=== PATIENT | female | born 1965 | race Hispanic/Latino ===

== ENCOUNTER 2018-07-24 15:00 | Inpatient (IN) | payer BC ==
[2018-07-24 17:20] VITALS: BMI 27.5
--- NOTE | 2018-07-24 18:32 | CP.PCM.HP ---
<Rodriguez Vega - Last Filed: 07/24/18 18:55> History of Present Illness - History of Present Illness History of Present Illness: 52 yo F admitted to TCU for rehabilitation s/p L ankle ORIF. Pt was walking down steps when she fell and fractured her ankle. Denies: CP/SOB/N/V/T/numbness PMD: none Famhx: none Soc: denies smoking, alcohol or illicit drug; lives alone Surg: R rotator cuff; L elbow; hysterectomy Rx: none NKDA Present on Admission - Present on Admission Any Indicators Present on Admission: No History of Uncontrolled Diabetes: No Review of Systems - Constitutional Constitutional: As Per HPI - Respiratory Respiratory: absent: Cough, Dyspnea - Gastrointestinal Gastrointestinal: absent: Abdominal Pain - Genitourinary Genitourinary: absent: Dysuria, Urinary Frequency - Musculoskeletal Musculoskeletal: As Per HPI Past Patient History - Infectious Disease Hx of Infectious Diseases: None - Past Social History Smoking Status: Never Smoked - CARDIAC Hx Cardiac Disorders: No - PULMONARY Hx Respiratory Disorders: No - NEUROLOGICAL Hx Neurological Disorder: No - HEENT Hx HEENT Problems: Yes (eyeglasses) - RENAL Hx Chronic Kidney Disease: No - ENDOCRINE/METABOLIC Hx Endocrine Disorders: No - HEMATOLOGICAL/ONCOLOGICAL Hx Blood Disorders: No - INTEGUMENTARY Hx Dermatological Problems: No - MUSCULOSKELETAL/RHEUMATOLOGICAL Hx Musculoskeletal Disorders: Yes Hx Falls: Yes - GASTROINTESTINAL Hx Gastrointestinal Disorders: No - GENITOURINARY/GYNECOLOGICAL Hx Genitourinary Disorders: No - PSYCHIATRIC Hx Substance Use: No - SURGICAL HISTORY Hx Surgeries: Yes Hx Hysterectomy: Yes - ANESTHESIA Hx Anesthesia Reactions: No Hx Malignant Hyperthermia: No Has any member of the family had a problem w/ anesthesia?: No Meds Allergies/Adverse Reactions: Allergies Allergy/AdvReac Type Severity Reaction Status Date / Time No Known Allergies Allergy Verified 07/24/18 17:22 Physical Exam - Constitutional Appears: Well, No Acute Distress - Eye Exam Eye Exam: EOMI - ENT Exam ENT Exam: Mucous Membranes Moist - Respiratory Exam Respiratory Exam: Clear to Auscultation Bilateral, NORMAL BREATHING PATTERN. absent: Wheezes - Cardiovascular Exam Cardiovascular Exam: +S1, +S2 - GI/Abdominal Exam GI & Abdominal Exam: Normal Bowel Sounds, Soft. absent: Tenderness - Extremities Exam Extremities exam: Negative for: calf tenderness Additional comments: L lower extremity wrapped below knee: sensation of digits intact, cap refill <2 sec. Good range of motion - Back Exam Back exam: absent: CVA tenderness (L), CVA tenderness (R) - Neurological Exam Neurological exam: Alert, CN II-XII Intact, Oriented x3 - Psychiatric Exam Psychiatric exam: Normal Affect, Normal Mood Results - Vital Signs Recent Vital Signs: Last Vital Signs Temp 98.4 F 07/24/18 17:50 Pulse 76 07/24/18 17:50 Resp 18 07/24/18 17:50 BP 156/92 H 07/24/18 17:50 Pulse Ox 96 07/24/18 17:50 Assessment & Plan - Assessment and Plan (Free Text) Assessment: 52 yo F admitted to TCU for rehabilitation s/p L ankle ORIF. Plan: L ankle ORIF POD 4: Ortho: Dr. Walker Pena continue pain management c/w PT/OT to help with gait: pt has approx 64 steps to climb Pending XR per ortho to check for proximal fibular fracture. f/u am labs DVT prophylaxis Lovenox Case and plan d/w Dr. Tam Vega MD PGY-2 <Michael Turcios D - Last Filed: 07/25/18 09:49> Results - Vital Signs Recent Vital Signs: Last Vital Signs Temp 98 F 07/24/18 20:43 Pulse 76 07/24/18 20:43 Resp 18 07/24/18 20:43 BP 129/77 07/24/18 20:43 Pulse Ox 97 07/24/18 20:43 - Labs Result Diagrams: 07/25/18 07:00 07/25/18 07:00 Labs: Laboratory Results - last 24 hr 07/25/18 07/25/18 07:00 07:00 WBC 7.2 RBC 3.29 L Hgb 11.8 L Hct 35.0 MCV 106.4 H MCH 35.9 H MCHC 33.8 RDW 13.5 Plt Count 286 Sodium 137 Potassium 4.6 Chloride 99 Carbon Dioxide 31 H Anion Gap 12 BUN 16 Creatinine 0.5 L Est GFR ( Amer) > 60 Est GFR (Non-Af Amer) > 60 Random Glucose 104 Calcium 9.4 Total Bilirubin 0.6 AST 37 H D ALT 36 Alkaline Phosphatase 77 Total Protein 7.0 Albumin 4.1 Globulin 2.9 Albumin/Globulin Ratio 1.4 Attending/Attestation - Attestation I have personally seen and examined this patient.: Yes I have fully participated in the care of the patient.: Yes I have reviewed all pertinent clinical information: Yes Notes (Text): 07/25/18 09:49 Patient seen and examined with resident. Case discussed and agreed with assessment and plan of management.
[2018-07-24] MEDS ORDERED: Oxycodone/Acetaminophen 5/325 mg Tab PO PRN (20:31)
[2018-07-24] MEDS: Oxycodone/Acetaminophen 5/325 mg Tab PO PRN (22:16)
[2018-07-25 07:07] LABS: HEMOGLOBIN 11.8 g/dL (12.0-16.0); MEAN CELL VOLUME 106.4 fl (81.0-99.0); MEAN CORPUSCULAR HEMOGLOBIN 35.9 pg (27.0-31.0); MEAN CORPUSCULAR HGB CONC 33.8 g/dL (33.0-37.0); RBC 3.29 Mil/uL (3.80-5.20); RED CELL DISTRIBUTION WIDTH 13.5 % (11.5-14.5); WHITE BLOOD COUNT 7.2 K/uL (4.8-10.8)
[2018-07-25 07:24] LABS: ALB/GLOB RATIO 1.4 (1.0-2.1); ALBUMIN 4.1 g/dL (3.5-5.0); ALT/SGPT 36 U/L (9-52); AST/SGOT 37 U/L (14-36); BLOOD UREA NITROGEN 16 mg/dl (7-17); CALCIUM 9.4 mg/dL (8.4-10.2); GFR NON-AFRICAN AMERICAN > 60
[2018-07-25] MEDS: Enoxaparin 40 mg Syringe SC SCH (08:59)
[2018-07-25] MEDS: Oxycodone/Acetaminophen 5/325 mg Tab PO PRN ×3 (09:40→21:15)
--- NOTE | 2018-07-25 11:46 | CP.PCM.PN ---
Subjective - Date & Time of Evaluation Date of Evaluation: 07/25/18 Time of Evaluation: 11:43 - Subjective Subjective: Patient states her pain in controlled. She is concerned about stairs at home. Patient states she has a leg crutch at home, but that Dr. Pearson told her not to use it. Advised patient that while inpatient we must follow doctor's order s/recommendations. Denies CP/SOB/dizziness. Objective - Vital Signs/Intake and Output Vital Signs (last 24 hours): Temp Pulse Resp BP Pulse Ox 98 F 76 18 129/77 97 07/24/18 20:43 07/24/18 20:43 07/24/18 20:43 07/24/18 20:43 07/24/18 20:43 - Medications Medications: Current Medications Acetaminophen (Tylenol 325mg Tab) 650 mg PO Q6 PRN PRN Reason: Pain, Mild (1-3) Enoxaparin Sodium (Lovenox) 40 mg SC DAILY DAYANARA; Protocol Last Admin: 07/25/18 08:59 Dose: 40 mg Oxycodone/Acetaminophen (Percocet 5/325 Mg Tab) 2 tab PO Q4H PRN PRN Reason: Pain, moderate (4-7) Stop: 07/27/18 20:36 Last Admin: 07/25/18 09:40 Dose: 2 tab - Labs Labs: 07/25/18 07:00 07/25/18 07:00 - Extremities Exam Additional comments: LLE: cast intact, +ROM toes, sensation intact, no swelling to toes Assessment and Plan (1) Ankle fracture, bimalleolar, closed Assessment & Plan: POD#5 s/p ORIF medial malleolus/syndesmosis s/p SLC yesterday NWB patient with ecchymosis and tenderness to proximal fibula, tib fib xrays ordered to r/o prox fib fx PT/OT lovenox orthopedically stable d/w Dr. Pearson, agrees with above Status: Acute (2) Syndesmotic disruption of left ankle Status: Acute
--- NOTE | 2018-07-25 16:29 | RAD ---
Date of service: 07/25/2018 PROCEDURE: Radiographs of the left tibia and fibula. HISTORY: leg pain, r/o prox fib fracture COMPARISON: None available. TECHNIQUE: Frontal and lateral views obtained. Three views obtained. FINDINGS: BONES: Examination is made through casting material obscuring bony detail. Two screws transfix a medial malleolar fracture. The lateral distal fibular metaphyseal level plate is in place syndesmotic repair is inferred. Assessment of the posterior malleolus obscured. Proximal fibular diaphyseal fracture oblique with 1 to 2 mm posterior displacement of the proximal fracture fragment on lateral view. JOINT SPACES: Unremarkable. OTHER FINDINGS: None. IMPRESSION: Fixation of multiple fractures as above.
--- NOTE | 2018-07-25 18:15 | CP.PCM.CON ---
History of Present Illness - History of Present Illness History of Present Illness: Dr Steiner PMR consultation on Annette Villela, born 1965 who has been admitted to [facility] following a mechanical fall with severe ankle fracture and multiple ligament injuries as well. NWB with cast. S.P ORIF as well. Pain is fairly well controlled. Some minimal transient numbness. Review of Systems - Constitutional Constitutional: absent: Chills - EENT Eyes: absent: Blurred Vision Ears: absent: Ear Discharge, Ear Pain Nose/Mouth/Throat: absent: Nasal Congestion, Nasal Discharge - Cardiovascular Cardiovascular: absent: Chest Pain - Respiratory Respiratory: absent: Dyspnea - Gastrointestinal Gastrointestinal: absent: Belching, Constipation - Musculoskeletal Musculoskeletal: absent: Back Pain - Integumentary Integumentary: absent: Bleeding Lesions - Neurological Neurological: absent: Abnormal Movements, Radicular Pain - Psychiatric Psychiatric: absent: Anxiety Past Patient History - Infectious Disease Hx of Infectious Diseases: None - Past Social History Smoking Status: Never Smoked Home Situation {Lives}: Alone (many stairs. working. Independent ADLs and ambulation [employer]) - CARDIAC Hx Cardiac Disorders: No - PULMONARY Hx Respiratory Disorders: No - NEUROLOGICAL Hx Neurological Disorder: No - HEENT Hx HEENT Problems: Yes (eyeglasses) - RENAL Hx Chronic Kidney Disease: No - ENDOCRINE/METABOLIC Hx Endocrine Disorders: No - HEMATOLOGICAL/ONCOLOGICAL Hx Blood Disorders: No - INTEGUMENTARY Hx Dermatological Problems: No - MUSCULOSKELETAL/RHEUMATOLOGICAL Hx Musculoskeletal Disorders: Yes Hx Falls: Yes - GASTROINTESTINAL Hx Gastrointestinal Disorders: No - GENITOURINARY/GYNECOLOGICAL Hx Genitourinary Disorders: No - PSYCHIATRIC Hx Substance Use: No - SURGICAL HISTORY Hx Surgeries: Yes Hx Hysterectomy: Yes - ANESTHESIA Hx Anesthesia Reactions: No Hx Malignant Hyperthermia: No Has any member of the family had a problem w/ anesthesia?: No Meds Allergies/Adverse Reactions: Allergies Allergy/AdvReac Type Severity Reaction Status Date / Time No Known Allergies Allergy Verified 07/24/18 17:22 - Medications Medications: Current Medications Acetaminophen (Tylenol 325mg Tab) 650 mg PO Q6 PRN PRN Reason: Pain, Mild (1-3) Enoxaparin Sodium (Lovenox) 40 mg SC DAILY DAYANARA; Protocol Last Admin: 07/25/18 08:59 Dose: 40 mg Oxycodone/Acetaminophen (Percocet 5/325 Mg Tab) 2 tab PO Q4H PRN PRN Reason: Pain, moderate (4-7) Stop: 07/27/18 20:36 Last Admin: 07/25/18 16:56 Dose: 2 tab Tizanidine HCl (Zanaflex) 4 mg PO HS PRN PRN Reason: Sleep Physical Exam - Constitutional Appears: Non-toxic, No Acute Distress - Head Exam Head Exam: ATRAUMATIC, NORMAL INSPECTION, NORMOCEPHALIC - Eye Exam Eye Exam: EOMI - ENT Exam ENT Exam: Mucous Membranes Moist - Respiratory Exam Respiratory Exam: NORMAL BREATHING PATTERN - Cardiovascular Exam Cardiovascular Exam: REGULAR RHYTHM - GI/Abdominal Exam GI & Abdominal Exam: absent: Distended - Extremities Exam Extremities exam: Negative for: normal inspection (has left leg cast in place. can wiggle toes without problem. no swelling or erythema) - Neurological Exam Neurological exam: Alert, CN II-XII Intact, Oriented x3 - Psychiatric Exam Psychiatric exam: Normal Affect Results - Vital Signs Recent Vital Signs: Last Vital Signs Temp 98 F 07/24/18 20:43 Pulse 90 07/25/18 10:45 Resp 18 07/24/18 20:43 BP 129/77 07/24/18 20:43 Pulse Ox 99 07/25/18 10:45 - Labs Result Diagrams: 07/25/18 07:00 07/25/18 07:00 Labs: Laboratory Results - last 24 hr 07/25/18 07/25/18 07:00 07:00 WBC 7.2 RBC 3.29 L Hgb 11.8 L Hct 35.0 MCV 106.4 H MCH 35.9 H MCHC 33.8 RDW 13.5 Plt Count 286 Sodium 137 Potassium 4.6 Chloride 99 Carbon Dioxide 31 H Anion Gap 12 BUN 16 Creatinine 0.5 L Est GFR ( Amer) > 60 Est GFR (Non-Af Amer) > 60 Random Glucose 104 Calcium 9.4 Total Bilirubin 0.6 AST 37 H D ALT 36 Alkaline Phosphatase 77 Total Protein 7.0 Albumin 4.1 Globulin 2.9 Albumin/Globulin Ratio 1.4 Assessment & Plan - Assessment and Plan (Free Text) Assessment: PT/OT to continue to help increase functional independence Pain: controlled, but having some problem with sleep at night occasionally. I do not want to add a Benzo so will start on Zanaflex prn Vascular: no evidence of DVT GI: No evidence of constipation or diarrhea Patient continues to be an excellent TCU rehabilitation candidate and will have continued focused PT, OT and recreational therapy to help facilitate a safe and appropriate d/c plan
[2018-07-26] MEDS: Oxycodone/Acetaminophen 5/325 mg Tab PO PRN ×4 (07:02→21:48)
--- NOTE | 2018-07-26 07:16 | CP.PCM.PN ---
Subjective - Date & Time of Evaluation Date of Evaluation: 07/26/18 Time of Evaluation: 07:13 - Subjective Subjective: Patient states pain is controlled. Still working on stairs. Denies CP/SOB/dizziness/palp Objective - Vital Signs/Intake and Output Vital Signs (last 24 hours): Temp Pulse Resp BP Pulse Ox 98.1 F 78 20 122/88 98 07/25/18 21:00 07/25/18 21:00 07/25/18 21:00 07/25/18 21:00 07/25/18 21:00 - Medications Medications: Current Medications Acetaminophen (Tylenol 325mg Tab) 650 mg PO Q6 PRN PRN Reason: Pain, Mild (1-3) Enoxaparin Sodium (Lovenox) 40 mg SC DAILY DAYANARA; Protocol Last Admin: 07/25/18 08:59 Dose: 40 mg Oxycodone/Acetaminophen (Percocet 5/325 Mg Tab) 2 tab PO Q4H PRN PRN Reason: Pain, moderate (4-7) Stop: 07/27/18 20:36 Last Admin: 07/26/18 07:02 Dose: 2 tab Tizanidine HCl (Zanaflex) 4 mg PO HS PRN PRN Reason: Sleep - Labs Labs: 07/25/18 07:00 07/25/18 07:00 - Extremities Exam Additional comments: +ROM toes flex/ext less swelling toes warm, normal cap refill leg elevated Assessment and Plan (1) Ankle fracture, bimalleolar, closed Assessment & Plan: SLC in place NWB stairs training orthopedically stable keep cast dry and intact f/u approx 1 week upon discharge d/w Dr. Fabian, agrees with above Status: Acute (2) Syndesmotic disruption of left ankle Status: Acute (3) Fracture of proximal end of fibula Assessment & Plan: non operative monitor healing does not change mgmt Dr. Fabian aware Status: Acute Radiology Interpretation - Radiology Interpretation #3 Interpretation: Patient Name / ID : ORLANDO LAWRENCE V / [id number] Exam Date : 07/25/2018 14:34:36 ( Approved ) Study Comment : Sex / Age : F / 52Y Creator : Yelena Toribio Dictator : Yelena Toribio Rapid Outsole Stitcher : Shop Foreman : Yelena Toribio Approver2 : Report Date : 07/25/2018 16:23:55 My Comment : Date of service: 07/25/2018 PROCEDURE: Radiographs of the left tibia and fibula. HISTORY: leg pain, r/o prox fib fracture COMPARISON: None available. TECHNIQUE: Frontal and lateral views obtained. Three views obtained. FINDINGS: BONES: Examination is made through casting material obscuring bony detail. Two screws transfix a medial malleolar fracture. The lateral distal fibular metaphyseal level plate is in place syndesmotic repair is inferred. Assessment of the posterior malleolus obscured. Proximal fibular diaphyseal fracture oblique with 1 to 2 mm posterior displacement of the proximal fracture fragment on lateral view. JOINT SPACES: Unremarkable. OTHER FINDINGS: None. IMPRESSION: Fixation of multiple fractures as above.
[2018-07-26] MEDS: Enoxaparin 40 mg Syringe SC SCH (09:08)
--- NOTE | 2018-07-26 12:16 | CP.PCM.PN ---
Subjective - Date & Time of Evaluation Date of Evaluation: 07/26/18 Time of Evaluation: 12:11 - Subjective Subjective: Patient doing well with PT. Pain is controlled with current regimen. She feels like she is ready to go home. Crutches bedside. No complaints. No headaches, chest pain, dizziness, shortness of breath. Objective - Vital Signs/Intake and Output Vital Signs (last 24 hours): Temp Pulse Resp BP Pulse Ox 98.4 F 74 20 114/61 98 07/26/18 07:45 07/26/18 07:45 07/26/18 07:45 07/26/18 07:45 07/26/18 07:45 - Medications Medications: Current Medications Acetaminophen (Tylenol 325mg Tab) 650 mg PO Q6 PRN PRN Reason: Pain, Mild (1-3) Enoxaparin Sodium (Lovenox) 40 mg SC DAILY DAYANARA; Protocol Last Admin: 07/26/18 09:08 Dose: 40 mg Oxycodone/Acetaminophen (Percocet 5/325 Mg Tab) 2 tab PO Q4H PRN PRN Reason: Pain, moderate (4-7) Stop: 07/27/18 20:36 Last Admin: 07/26/18 12:04 Dose: 2 tab Tizanidine HCl (Zanaflex) 4 mg PO HS PRN PRN Reason: Sleep - Labs Labs: 07/25/18 07:00 07/25/18 07:00 - Constitutional Appears: Well - Head Exam Head Exam: ATRAUMATIC, NORMAL INSPECTION, NORMOCEPHALIC - Eye Exam Eye Exam: EOMI, Normal appearance, PERRL - Respiratory Exam Respiratory Exam: Clear to Ausculation Bilateral, NORMAL BREATHING PATTERN - Cardiovascular Exam Cardiovascular Exam: REGULAR RHYTHM, +S1, +S2. absent: Murmur - GI/Abdominal Exam GI & Abdominal Exam: Soft, Normal Bowel Sounds. absent: Tenderness - Extremities Exam Additional comments: left lower leg cast in place - Neurological Exam Neurological Exam: Alert, Awake - Psychiatric Exam Psychiatric exam: Normal Affect, Normal Mood Assessment and Plan - Assessment and Plan (Free Text) Assessment: 52 year old female admitted to TCU for rehabilitation s/p L ankle ORIF. Plan: L ankle ORIF POD 6: Ortho: Dr. Walker Pena Pain is well controlled. c/w PT/OT to help with gait: pt has approx 64 steps to climb Labs reviewed. DVT prophylaxis Ruthie Worley PGY3
[2018-07-26 19:19] VITALS: O2SAT 96
[2018-07-27] MEDS: Enoxaparin 40 mg Syringe SC SCH (08:37)
[2018-07-27 08:43] VITALS: BP 157/81; PULSE 88; RESP 19; TEMP 98.2
[2018-07-27] MEDS: Oxycodone/Acetaminophen 5/325 mg Tab PO PRN ×2 (08:46→12:00)
--- NOTE | 2018-07-27 09:14 | CP.PCM.PN ---
Subjective - Date & Time of Evaluation Date of Evaluation: 07/27/18 Time of Evaluation: 09:12 - Subjective Subjective: Patient states pain is controlled. No new complaints. Objective - Vital Signs/Intake and Output Vital Signs (last 24 hours): Temp Pulse Resp BP Pulse Ox 98.2 F 88 19 157/81 H 96 07/27/18 08:41 07/27/18 08:41 07/27/18 08:41 07/27/18 08:41 07/26/18 19:18 - Medications Medications: Current Medications Acetaminophen (Tylenol 325mg Tab) 650 mg PO Q6 PRN PRN Reason: Pain, Mild (1-3) Enoxaparin Sodium (Lovenox) 40 mg SC DAILY DAYANARA; Protocol Last Admin: 07/27/18 08:37 Dose: 40 mg Oxycodone/Acetaminophen (Percocet 5/325 Mg Tab) 2 tab PO Q4H PRN PRN Reason: Pain, moderate (4-7) Stop: 07/27/18 20:36 Last Admin: 07/27/18 08:46 Dose: 2 tab Tizanidine HCl (Zanaflex) 4 mg PO HS PRN PRN Reason: Sleep - Labs Labs: 07/25/18 07:00 07/25/18 07:00 - Extremities Exam Additional comments: LLE: +ROM toes, sensation intact, cast intact Assessment and Plan (1) Ankle fracture, bimalleolar, closed Assessment & Plan: SLC in place NWB continue lovenox stairs training orthopedically stable keep cast dry and intact f/u approx 1 week upon discharge d/w Dr. Fabian, agrees with above Status: Acute (2) Syndesmotic disruption of left ankle Status: Acute (3) Fracture of proximal end of fibula Status: Acute
--- NOTE | 2018-07-27 11:14 | CP.PCM.DIS ---
<Salina Worley - Last Filed: 07/27/18 13:26> Provider - Provider Date of Admission: 07/24/18 17:30 Attending physician: Michael Turcios MD Consults: 07/25/18 09:22 Orthopedic Consult Routine Comment: Consulting Provider: Anish Blanchard Consulting Physician: Anish Blanchard Reason for Consult: s/p surgery 07/25/18 09:25 Physiatry Consult Routine Comment: Consulting Provider: Jaret Steiner Consulting Physician: Jaret Steiner Reason for Consult: orif to left ankle Time Spent in preparation of Discharge (in minutes): 35 Diagnosis - Discharge Diagnosis (1) Fracture of proximal end of fibula Status: Acute (2) Ankle fracture, bimalleolar, closed Status: Acute (3) Syndesmotic disruption of left ankle Status: Acute Hospital Course - Lab Results Lab Results: Most Recent Lab Values WBC 7.2 K/uL (4.8-10.8) 07/25/18 07:00 RBC 3.29 Mil/uL (3.80-5.20) L 07/25/18 07:00 Hgb 11.8 g/dL (12.0-16.0) L 07/25/18 07:00 Hct 35.0 % (34.0-47.0) 07/25/18 07:00 MCV 106.4 fl (81.0-99.0) H 07/25/18 07:00 MCH 35.9 pg (27.0-31.0) H 07/25/18 07:00 MCHC 33.8 g/dL (33.0-37.0) 07/25/18 07:00 RDW 13.5 % (11.5-14.5) 07/25/18 07:00 Plt Count 286 K/uL (130-400) 07/25/18 07:00 Sodium 137 mmol/l (132-148) 07/25/18 07:00 Potassium 4.6 MMOL/L (3.6-5.0) 07/25/18 07:00 Chloride 99 mmol/L (98-107) 07/25/18 07:00 Carbon Dioxide 31 mmol/L (22-30) H 07/25/18 07:00 Anion Gap 12 (10-20) 07/25/18 07:00 BUN 16 mg/dl (7-17) 07/25/18 07:00 Creatinine 0.5 mg/dl (0.7-1.2) L 07/25/18 07:00 Est GFR ( Amer) > 60 07/25/18 07:00 Est GFR (Non-Af Amer) > 60 07/25/18 07:00 Random Glucose 104 mg/dL (65-105) 07/25/18 07:00 Calcium 9.4 mg/dL (8.4-10.2) 07/25/18 07:00 Total Bilirubin 0.6 mg/dl (0.2-1.3) 07/25/18 07:00 AST 37 U/L (14-36) H D 07/25/18 07:00 ALT 36 U/L (9-52) 07/25/18 07:00 Alkaline Phosphatase 77 U/L (38-126) 07/25/18 07:00 Total Protein 7.0 G/DL (6.3-8.2) 07/25/18 07:00 Albumin 4.1 g/dL (3.5-5.0) 07/25/18 07:00 Globulin 2.9 gm/dL (2.2-3.9) 07/25/18 07:00 Albumin/Globulin Ratio 1.4 (1.0-2.1) 07/25/18 07:00 - Hospital Course Hospital Course: 52 yo F admitted to TCU for rehabilitation s/p L ankle ORIF. Patient has done well with PT and is stable for discharge home. She has rx for lovenox at home. She will be discharged with percocet for pain control, she is not requiring more than 2 doses daily. Patient has been hemodynamically stable. Follow up with ortho outpatient. Discharge Exam - Head Exam Head Exam: ATRAUMATIC, NORMAL INSPECTION, NORMOCEPHALIC - Respiratory Exam Respiratory Exam: Clear to PA & Lateral, NORMAL BREATHING PATTERN - Cardiovascular Exam Cardiovascular Exam: REGULAR RHYTHM, +S1, +S2 - Extremities Exam Additional comments: left ankle cast in place - Neurological Exam Neurological exam: Alert, CN II-XII Intact - Psychiatric Exam Psychiatric exam: Normal Affect, Normal Mood - Skin Skin Exam: Dry, Normal Color Discharge Plan - Discharge Medications Prescriptions: oxyCODONE/Acetaminophen [Percocet 5/325 mg Tab] 1 tab PO Q6 #15 tab - Follow Up Plan Condition: GOOD Disposition: HOME/ ROUTINE Additional Instructions: Follow up with doctor Lo in 1 week. <Diana Patel - Last Filed: 07/27/18 18:49> Provider - Provider Date of Admission: 07/24/18 17:30 Attending physician: Michael Turcios MD Consults: 07/25/18 09:22 Orthopedic Consult Routine Comment: Consulting Provider: Anish Blanchard Consulting Physician: Anish Blanchard Reason for Consult: s/p surgery 07/25/18 09:25 Physiatry Consult Routine Comment: Consulting Provider: Jaret Steiner Consulting Physician: Jaret Steiner Reason for Consult: orif to left ankle Hospital Course - Lab Results Lab Results: Most Recent Lab Values WBC 7.2 K/uL (4.8-10.8) 07/25/18 07:00 RBC 3.29 Mil/uL (3.80-5.20) L 07/25/18 07:00 Hgb 11.8 g/dL (12.0-16.0) L 07/25/18 07:00 Hct 35.0 % (34.0-47.0) 07/25/18 07:00 MCV 106.4 fl (81.0-99.0) H 07/25/18 07:00 MCH 35.9 pg (27.0-31.0) H 07/25/18 07:00 MCHC 33.8 g/dL (33.0-37.0) 07/25/18 07:00 RDW 13.5 % (11.5-14.5) 07/25/18 07:00 Plt Count 286 K/uL (130-400) 07/25/18 07:00 Sodium 137 mmol/l (132-148) 07/25/18 07:00 Potassium 4.6 MMOL/L (3.6-5.0) 07/25/18 07:00 Chloride 99 mmol/L (98-107) 07/25/18 07:00 Carbon Dioxide 31 mmol/L (22-30) H 07/25/18 07:00 Anion Gap 12 (10-20) 07/25/18 07:00 BUN 16 mg/dl (7-17) 07/25/18 07:00 Creatinine 0.5 mg/dl (0.7-1.2) L 07/25/18 07:00 Est GFR ( Amer) > 60 07/25/18 07:00 Est GFR (Non-Af Amer) > 60 07/25/18 07:00 Random Glucose 104 mg/dL (65-105) 07/25/18 07:00 Calcium 9.4 mg/dL (8.4-10.2) 07/25/18 07:00 Total Bilirubin 0.6 mg/dl (0.2-1.3) 07/25/18 07:00 AST 37 U/L (14-36) H D 07/25/18 07:00 ALT 36 U/L (9-52) 07/25/18 07:00 Alkaline Phosphatase 77 U/L (38-126) 07/25/18 07:00 Total Protein 7.0 G/DL (6.3-8.2) 07/25/18 07:00 Albumin 4.1 g/dL (3.5-5.0) 07/25/18 07:00 Globulin 2.9 gm/dL (2.2-3.9) 07/25/18 07:00 Albumin/Globulin Ratio 1.4 (1.0-2.1) 07/25/18 07:00 Attending/Attestation - Attestation I have personally seen and examined this patient.: Yes I have fully participated in the care of the patient.: Yes I have reviewed all pertinent clinical information, including history, physical exam and plan: Yes Notes (Text): Agree with findings and plan as above.
== END 2018-07-27 12:06 | disposition home or self-care (01) | DRG 561 ==
LOC: H.TCU 17:30
PROC: F07Z9FZ Gait Training/Functional Ambulation Treatment using Assistive, Adaptive, Supportive or Protective Equipment (ICD-10-PCS; principal; 2018-07-24)
PROC: F08Z4FZ Home Management Treatment using Assistive, Adaptive, Supportive or Protective Equipment (ICD-10-PCS; 2018-07-24)
PROC: F07L6FZ Therapeutic Exercise Treatment of Musculoskeletal System - Lower Back / Lower Extremity using Assistive, Adaptive, Supportive or Protective Equipment (ICD-10-PCS; 2018-07-25)
DX: S82.842D Displaced bimalleolar fracture of left lower leg, subsequent encounter for closed fracture with routine healing (principal); S82.492D Other fracture of shaft of left fibula, subsequent encounter for closed fracture with routine healing; Z98.890 Other specified postprocedural states; W10.9XXD Fall (on) (from) unspecified stairs and steps, subsequent encounter